=== PATIENT | male | born 1970 | race Two or more races ===

== ENCOUNTER → 2016-11-25 | Outpatient (CLI) | payer OTHER ==
--- NOTE | 2016-11-26 11:31 | MR ---
EXAMINATION TYPE: MR brain and iac wo/w con DATE OF EXAM: 11/25/2016 7:39 PM COMPARISON: NONE HISTORY: ACUTE CBA, HEARING LOSS, CONTRAST: 20 mL MultiHance TECHNIQUE: T1-weighted sagittal, diffusion, T2, and FLAIR axial views of the brain are submitted. The high-reso lution T2 axial and postcontrast T1 axial and coronal views of the IACs are submitted. FINDINGS: There is no pathologic enhancement of the seventh and eighth cranial nerve complex. There is no acou stic neuroma. Ventricular system is midline. There is no evidence of displacement. No enhancing mass. There is a ar ea of abnormal signal within the medial temporal lobe on the left which has signal characteristics of a cyst measures 8 mm. May be related to an intraparenchymal cyst or tiny area of remote ischemia. Craniocervical junction maintained. Sella turcica has a normal appearance. White matter: There are approximately 4 5 areas of less than 5 mm area of abnormal signal in the whit e matter which are nonspecific. IMPRESSION: 1. No evidence of acoustic schwannoma or cerebellopontine angle mass. 2. 8 mm intraparenchymal cyst or focal area of remote ischemia left temporal lobe. 3. Minimal nonspecific white matter changes can be seen with migraine headaches or hypertension. Demy elinating process or remote microvascular ischemia not entirely excluded.
== END | disposition home or self-care (01) ==
LOC: RADMRIMAIN 18:34
PROVIDERS: ATTEND Nurse Practitioner Family
DX: R90.82 White matter disease, unspecified (principal); H90.42 Sensorineural hearing loss, unilateral, left ear, with unrestricted hearing on the contralateral side; H93.A2 Pulsatile tinnitus, left ear
CPT/HCPCS: 70553; A9577

== ENCOUNTER → 2017-04-12 | Outpatient (CLI) | payer OTHER ==
--- NOTE | 2017-04-13 08:30 | ECHOF ---
Referral Reason:TIA G45.9 MEASUREMENTS -------- HEIGHT: 175.3 cm WEIGHT: 85.3 kg BP: 157/90 RVIDd: 2.7 cm (< 3.3) IVSd: 1.1 cm (0.6 - 1.1) LVIDd: 3.7 cm (3.9 - 5.3) LVPWd: 1.0 cm (0.6 - 1.1) IVSs: 1.3 cm LVIDs: 2.5 cm LVPWs: 1.3 cm LAESV Index (A-L): 27.98 ml/m Ao Diam: 2.8 cm (2.0 - 3.7) AV Cusp: 1.9 cm (1.5 - 2.6) LA Diam: 2.7 cm (2.7 - 3.8) MV EXCURSION: 19.436 mm (> 18.000) MV EF SLOPE: 126 mm/s (70 - 150) EPSS: 0.4 cm MV E Berny: 1.01 m/s MV DecT: 217 ms MV A Berny: 0.70 m/s MV E/A Ratio: 1.44 RAP: 5.00 mmHg RVSP: 13.46 mmHg FINDINGS -------- Sinus rhythm. This was a technically good study. The left ventricular size is normal. Left ventricular wall thickness is normal. Overall left ventricular systolic function is normal with, an EF between 55 - 60 %. The right ventricle is normal in size and function. Normal LA size by volume 22+/-6 ml/m2. The right atrium is normal in size. The aortic valve is trileaflet, and appears structurally normal. No aortic stenosis or regurgitation. The mitral valve is normal. There is trace mitral regurgitation. Trace tricuspid regurgitation present. Right ventricular systolic pressure is normal at < 35 mmHg. There is no evidence of pulmonary hypertension. The pulmonic valve is normal. The aortic root size is normal. Normal inferior vena cava with normal inspiratory collapse consistent with estimated right atrial pressure of 5 mmHg. The pericardium is normal. There is no pericardial effusion. CONCLUSIONS -------- 1. Sinus rhythm. 2. There is no evidence of pulmonary hypertension. 3. The aortic root size is normal. 4. There is no pericardial effusion. 5. This was a technically good study. 6. The left ventricular size is normal. 7. Overall left ventricular systolic function is normal with, an EF between 55 - 60 %. 8. Normal LA size by volume 22+/-6 ml/m2. 9. The aortic valve is trileaflet, and appears structurally normal. No aortic stenosis or regurgitation. 10. There is trace mitral regurgitation. 11. Trace tricuspid regurgitation present. 12. Right ventricular systolic pressure is normal at < 35 mmHg. BUSINESS OPERATIONS ANALYST: Ernesto Meraz RDCS
--- NOTE | 2017-04-13 13:58 | US ---
EXAMINATION TYPE: US carotid duplex BILAT DATE OF EXAM: 04/12/2017 COMPARISON: NONE CLINICAL HISTORY: TIA G45.9. Pt states left facial pain and tingling EXAM MEASUREMENTS: RIGHT: Peak Systolic Velocity (PSV) cm/sec ----- Right CCA: 104.2 ----- Right ICA: 75.3 ----- Right ECA: 68.6 ICA/CCA ratio: 0.7 RIGHT: End Diastole cm/sec ----- Right CCA: 29.3 ----- Right ICA: 36.6 ----- Right ECA: 13.9 LEFT: Peak Systolic Velocity (PSV) cm/sec ----- Left CCA: 94.3 ----- Left ICA: 94.1 ----- Left ECA: 82.2 ICA/CCA ratio: 1.0 LEFT: End Diastole cm/sec ----- Left CCA: 29.3 ----- Left ICA: 46.1 ----- Left ECA: 18.3 VERTEBRALS (direction of flow): Right Vertebral: Antegrade Left Vertebral: Antegrade Rhythm: Normal No significant stenosis seen Intimal thickening is present on the right. Doppler waveforms appear within normal limits. Intimal th ickening with some minimal plaquing may be present on the left. IMPRESSION: Intimal thickening and atheromatous plaquing without significant flow-limiting stenosis. Criteria for Assigning % of Stenosis / Diameter reduction (Estimation based on the indirect measurements of the internal carotid artery velocities (ICA PSV). 1. Normal (no stenosis)=ICA PSV < 125 cm/s: ratio < 2.0: ICA EDV<40 cm/s. 2. Less than 50% stenosis=ICA PSV < 125 cm/s: ratio < 2.0: ICA EDV<40 cm/s. 3. 50 to 69% stenosis=ICA PSV of 125 to 230 cm/s: ration 2.0 ? 4.0: ICA EDV 40-100 cm/s. 4. Greater than 70% stenosis to near occlusion= ICA PSV > 230 cm/s: ratio > 4.0: ICA EDV > 100 cm/s. 5. Near occlusion= ICA PSV velocities may be low or undetectable: variable ratio and ICA EDV. 6. Total occlusion=unable to detect flow.
== END | disposition home or self-care (01) ==
LOC: RADECHMAIN 16:38
PROVIDERS: ATTEND Internal Medicine Geriatric Medicine
DX: I65.29 Occlusion and stenosis of unspecified carotid artery (principal); I07.1 Rheumatic tricuspid insufficiency
CPT/HCPCS: 93306; 93880

== ENCOUNTER → 2017-11-23 | Outpatient (CLI) | payer OTHER ==
--- NOTE | 2017-11-23 18:37 | MR ---
MR left foot HISTORY: Left foot pain, swelling and mass Multiplanar multisequence imaging through the left foot or graph no comparisons The area of the patient's overlying marker, palpable mass, symptomatology there is oval cystic area, increased signal on T2-weighted sequences, intermediate on T1 weighted sequences measuring approximat jamil 18 mm in anterior to posterior dimension by 7 to 8 mm in cephalad to caudal dimension by 13 mm in transverse dimension just deep to the skin and near the level of the tarsometatarsal joint of the fi rst and second digits, some smaller cystic foci are immediately adjacent and deep to a sizable lesion . Additionally at the level more proximal to the ankle joint medially, an additional focus with mult ilocular cystic appearance is present at the level of the talonavicular joint measuring 1.7 x 1.1 x 2 cm. Some fluid signal is present along the flexor tendons at the level of the ankle. Achilles tendon, rodrigo ntar aponeurosis are intact. Bone marrow signal is maintained. IMPRESSION: Findings likely represent ganglion cysts.
== END ==
LOC: RADMRIMAIN 06:12
PROVIDERS: ATTEND Orthopaedic Surgery
DX: M79.672 Pain in left foot (principal); R22.42 Localized swelling, mass and lump, left lower limb

== ENCOUNTER → 2019-10-05 | Outpatient (CLI) | payer BC ==
--- NOTE | 2019-10-05 11:37 | ECHOS ---
STRESS ECHOCARDIOGRAM INDICATIONS: Chest pain. MEDICATIONS: BASELINE HEART RATE: 67 BASELINE BLOOD PRESSURE: 133/84 MAXIMUM HEART RATE: 157 MAXIMUM BLOOD PRESSURE: 197/78 85% MPHR: 146 100% MPHR: 172 METS: 14 MAXIMUM STAGE REACHED: IV TOTAL EXERCISE TIME: 12-1/2 minutes CLINICAL INFORMATION: Baseline EKG shows sinus rhythm, normal axis, normal intervals. Patient exercised on Nam protocol for a total of 12-1/2 minutes, achieving a 14 METs, 99% of predicted maximal heart rate without chest pain. At peak exercise, there was [address]- segment depression noted in the inferolateral lead. Baseline echo shows normal left ventricular size, wall motion and systolic function. Postexercise, there is normal hyperdynamic response of all segments of myocardium noted. CONCLUSIONS: 1. Excellent exercise tolerance. 2. Abnormal stress test by EKG criteria. 3. Negative stress echo. MMCELSOL / CHASN: [id number] /
== END | disposition home or self-care (01) ==
LOC: RADNMMAIN 09:06
PROVIDERS: ATTEND Internal Medicine Geriatric Medicine
DX: R94.39 Abnormal result of other cardiovascular function study (principal)
CPT/HCPCS: 93351